=== PATIENT | male | born 1970 | race Hispanic/Latino ===

== ENCOUNTER → 2017-08-19 | Outpatient (CLI) | payer OTHER ==
--- NOTE | 2017-08-19 08:25 | Diagnostic Imaging Report ---
PROCEDURE:TESTICULAR DOPPLER ULTRASOUND COMPARISON:None. INDICATIONS:Spermatocele of Epididymis, Hydrocele TECHNIQUE: Tsang-scale and color doppler images of the testicles and scrotal contents were obtained. Duplex imaging with spectral waveform analysis was performed of the testicular arteries and veins. FINDINGS: See below. CONCLUSION: Please see the dictation of the testicular ultrasound for full clinical details. Dictated by: Arsalan Arauz M.D. on 08/19/2017 at 8:27 Electronically approved by: Arsalan Arauz M.D. on 08/19/2017 at 8:27
--- NOTE | 2017-08-19 08:34 | Diagnostic Imaging Report ---
PROCEDURE:TESTICULAR ULTRASOUND COMPARISON:None. INDICATIONS:Spermatocele of Epididymis, Hydrocele TECHNIQUE: Tsang-scale and color doppler images of the testicles and scrotal contents were obtained. Duplex imaging with spectral waveform analysis was performed of the testicular arteries and veins. FINDINGS: RIGHT SCROTUM: Testicle: 3.8 x 2.8 x 3.0 cm. Epididymal head: 1.4 x 0.5 x 0.5 cm. Hydrocele: None. Varicocele: None. LEFT SCROTUM: Testicle: 4.1 x 2.7 x 3.2 cm. Epididymal head: 1.3 x 0.7 x 1.1 cm. Hydrocele: None. Varicocele: None. Focal hyperechoic region with posterior shadowing is present in the extratesticular margin of the left scrotum located in the medial/inferior aspect and measures 0.8 x 0.3 x 0.5 cm. Focal well-circumscribed anechoic 0.5 x 0.8 x 0.6 cm cyst with debris is present in the left epididymis. Normal blood flow is noted to the testicles bilaterally. Low likelihood of testicular torsion. CONCLUSION: No acute sonographic abnormality. Hyperechoic region in the left scrotum may represent calcification due to prior infection or postoperative changes given history of vasectomy. Left epididymal cyst, likely representing a spermatocele. Dictated by: Arsalan Arauz M.D. on 08/19/2017 at 8:36 Electronically approved by: Arsalan Arauz M.D. on 08/19/2017 at 8:36
== END ==
LOC: US 07:34
PROVIDERS: ATTEND Urology
DX: N43.40 Spermatocele of epididymis, unspecified (principal); N43.3 Hydrocele, unspecified
CPT/HCPCS: 76870; 93976